=== PATIENT | female | born 1945 | race Caucasian/White ===

== ENCOUNTER → 2018-07-09 | Outpatient (CLI) | payer MEDICARE ==
--- NOTE | 2018-07-09 12:02 | KCIC ---
EXAM: Dual energy x-ray absorptiometry (DEXA). HISTORY: Postmenopausal female presents for osteoporosis screening. COMPARISON: None. TECHNIQUE: Dual energy x-ray absorptiometry of the lumbar spine and left hip was performed. Calculation of bone mineral density based on standard deviations above or below the expected young adult normal value (T-score) was completed. FINDINGS: The average bone mineral density in the 1st through 4th lumbar vertebrae is 0.770 g/cmxcm, corresponding with a T-score of -2.5. The average total bone mineral density in the left hip is 0.758 g/cmxcm, corresponding with a T-score of -1.5. IMPRESSION: 1. Borderline osteoporosis measured at the lumbar spine. 2. Osteopenia measured at the left hip. Note: Definitions established by the [employer]: 1. Normal: T-score is -1.0 or above. 2. Osteopenia: T-score is between -1.0 and -2.5 . 3. Osteoporosis: T-score is -2.5 or below. Electronically signed by: Alla Heath MD (07/09/2018 11:59 AM) [id number]
== END | disposition home or self-care (01) ==
LOC: KCIC DEXA 11:15
PROVIDERS: ATTEND Specialist
DX: M85.852 Other specified disorders of bone density and structure, left thigh (principal); M81.0 Age-related osteoporosis without current pathological fracture; Z78.0 Asymptomatic menopausal state
CPT/HCPCS: 77080